=== PATIENT | female | born 2005 | race Caucasian/White ===

== ENCOUNTER 2024-06-10 18:43 | Emergency (ER) | payer SELFPAY ==
[~2024-06-10] VITALS: Ht 157.5 cm; Wt 61.0 kg
[2024-06-10 19:34] VITALS: O2SAT 99
[2024-06-10 21:12] LABS: CLARITY URINE CLOUDY (CLEAR); COLOR URINE YELLOW (YELLOW); GLUCOSE URINE NEGATIVE (NEGATIVE); KETONES URINE NEGATIVE (NEGATIVE); LEUKOCYTE ESTERASE URINE 2+ (NEGATIVE); NITRITE URINE NEGATIVE (NEGATIVE); OCCULT BLOOD URINE NEGATIVE (NEGATIVE); PH URINE 6.5 (4.5-8.0); PROTEIN URINE NEGATIVE (NEGATIVE); SPECIFIC GRAVITY URINE 1.016 (1.005-1.030); UROBILINOGEN URINE 0.2 E.U./dL (0.2-1.0)
[2024-06-10 21:21] LABS: UCG SCREEN NEGATIVE
[2024-06-10 21:33] LABS: BACTERIA URINE 3+; RBC URINE 0-2 /hpf (0-2); SQUAMOUS EPITHELIAL CELL URINE 2+ /lpf (RARE/1+)
[2024-06-10] MEDS ORDERED: SULF1TAB48 MT (21:40)
[2024-06-10 22:27] VITALS: BP 128/67; PULSE 82; RESP 16; TEMP 98.6
== END 2024-06-10 22:29 | disposition home or self-care (01) ==
LOC: ER 18:43
DX: N39.0 Urinary tract infection, site not specified (principal)
CPT/HCPCS: 81003; 81025; 99283